=== PATIENT | male | born 1945 | race Caucasian/White ===

== ENCOUNTER → 2018-10-12 | Outpatient (CLI) | payer OTHER, MEDICARE ==
[~2018-10-12] VITALS: Ht 177.8 cm; Wt 73.9 kg
[~2018-10-12] MED LIST: ARICEPT10 M1 PO; ASPIR 8181 MG PO; CYPROHEPTADINE 44 MG PO; FLONASE 0.05%50 MCG NASAL; GLUCOSAMINE CH1 EAC2 PO; MUCUS RELIEF400 MG PO; MULTIVITAMINS1 EAC7 PO; NABUMETONE 750750 M1 PO; NORFLEX100 MG PO; NUVIGIL150 MG PO; PEPCID AC10 MG PO; TRIAMCINOLONE A80 G2 TOP; TURMERIC1 GM PO; TYLENOL EXTRA500 MG PO; VITAMIN D1000 UNI1 PO
[2018-10-12 11:11] VITALS: BP 125/56
--- NOTE | 2018-10-12 11:40 | NUR ---
Pain Clinic Assessment: 1. History of Osteoarthritis: SPINE History of Rheumatoid Arthritis: Not Applicable 2. Height: 5 ft. 10 in. 177.8 cm. Weight: 163.0 lb. oz. 73.936 kg. Patient's BMI: 23.4 3. Vital Signs: BP: 125/56 Pulse: 54 Resp: 14 Temp: 02 Sat: 99 ECG Mon: 4. Pain Intensity: 7-8 WITH WALKING 5. Fall Risk: Dizziness: N Needs help standing or walking: N Fallen in the last 3 months: N Fall risk comments: 6. Patient on Blood Thinner: None 7. History of Hypertension: N 8. Opioid Therapy greater than 6 weeks: Opiate Contract Signed: 9. Risk Assessment Tool Provided: LOW-0 10. Functional Assessment Tool: 11. Recreational Drug Use: Never Drug Type: Tobacco Use: Never Smoker Tobacco Type: Amount or Packs/day: How Many Years: Alcohol Use: Yes Frequency: Weekly Quant: 2
== END | disposition home or self-care (01) ==
LOC: PAIN 06:53
DX: M54.16 Radiculopathy, lumbar region (principal); G89.29 Other chronic pain; Z88.0 Allergy status to penicillin; Z79.82 Long term (current) use of aspirin; Z79.899 Other long term (current) drug therapy

== ENCOUNTER → 2019-01-04 | Outpatient (CLI) | payer OTHER, MEDICARE ==
[~2019-01-04] VITALS: Ht 177.8 cm; Wt 75.8 kg
[2019-01-04 08:32] VITALS: BP 127/66
--- NOTE | 2019-01-04 08:36 | NUR ---
Pain Clinic Assessment: 1. History of Osteoarthritis: SPINE History of Rheumatoid Arthritis: Not Applicable 2. Height: 5 ft. 10 in. 177.8 cm. Weight: 167.0 lb. oz. 75.751 kg. Patient's BMI: 24.0 3. Vital Signs: BP: 127/66 Pulse: 53 Resp: 13 Temp: 02 Sat: 99 ECG Mon: 4. Pain Intensity: 4 5. Fall Risk: Dizziness: N Needs help standing or walking: N Fallen in the last 3 months: N Fall risk comments: 6. Patient on Blood Thinner: None 7. History of Hypertension: N 8. Opioid Therapy greater than 6 weeks: N Opiate Contract Signed: 9. Risk Assessment Tool Provided: LOW-0 10. Functional Assessment Tool: 11. Recreational Drug Use: Never Drug Type: Tobacco Use: Never Smoker Tobacco Type: Amount or Packs/day: How Many Years: Alcohol Use: Yes Frequency: Weekly Quant:
--- NOTE | 2019-01-10 11:13 | HPC ---
[facility] [place] [place] [address] PAIN MANAGEMENT CONSULTATION Name: TYRESEBARBARA Melia Room #: REG [facility]#: [id number] Admission: 01/04/19 Attend Phys: Denys Thakur MD Discharge: Date of : 45 Report #: [id number] THIS REPORT FOR: //name// CC: Denys Avila DATE OF SERVICE: 01/04/2019 CHIEF COMPLAINT: Back pain. HISTORY: The patient is a 73-year-old gentleman who has been seen in the Pain Clinic because of back and leg pain. He has noted onset of this discomfort in 02/2018. He has been active. Generally, he walked about 2-1/2 miles at home. He has had back surgery. He underwent an epidural steroid injection in the past. He noticed an improvement in his pain. After an epidural injection. He has noted a return of his pain and discomfort. Continues to be in the lower back and down in the leg. Standing for 20-30 minutes can cause a recurrence of his pain. Walking is limited because of the pain and discomfort. He describes it as a shooting, aching, and throbbing discomfort. Rates the pain today as 4/10. He would like to proceed with another epidural injection. ALLERGIES: PENICILLIN. CURRENT MEDICATIONS: Guanfacine 400 mg tablets, Tylenol Extra Strength 500 mg b.i.d., Pepcid 10 mg, vitamin D 1000 units, turmeric 1 gram powder b.i.d., multivitamins, glucosamine chondroitin, triamcinolone 0.1% topical, aspirin 81 mg, Flonase 0.05% nasal spray b.i.d., Nuvigil 150 mg, Aricept 10 mg, cyproheptadine 4 mg 3 tablets daily, nabumetone 500 mg b.i.d., and Norflex 100 mg. PAIN CLINIC ASSESSMENT/PQRS: 1. The patient is not being treated for osteoarthritis. Does have some arthritic changes in his spine. He is status post surgery. He is not being treated for rheumatoid arthritis. 2. Height 5 feet 10 inches, weight 167 pounds, BMI is 24.0. 3. Vital Signs: Blood pressure 127/66, pulse 53, respiratory rate 13, room air saturation 99%. 4. Pain intensity, 06/06. 5. Fall history: The patient has not fallen in the last 3 months. 6. Blood thinner. The patient is not on a blood thinning medication. 7. Hypertension. The patient is not being treated for hypertension. 8. Opioids greater than 6 weeks. The patient is not receiving opioids on a regular basis. 9. Functional assessment tool, . 10. Recreational drug use: The patient denies. 11. Tobacco: [place] [address] PAIN MANAGEMENT CONSULTATION Name: BARBARA XIONG Room #: REG [facility]#: [id number] Admission: 01/04/19 Attend Phys: Denys Thakur MD Discharge: Date of : 45 Report #: [id number] 12. Alcohol: The patient occasionally drinks an alcoholic beverage. 13. Risk assessment tool, low for opioid use. PHYSICAL EXAMINATION: GENERAL: The patient is a well-developed, well-nourished white male. Appears his stated age. He is alert and oriented x 3. His affect is appropriate. Speech is fluent. HEENT: Normocephalic, atraumatic. Extraocular eye muscles intact. Sclerae nonicteric. Mucous membranes are moist. NECK: Without adenopathy or JVD. HEART: Regular rate. ABDOMEN: Nontender. Bowel sounds present. EXTREMITIES: Upper extremity muscle strength is judged to be 5/5 for the major muscle groups in the upper extremity. Lower extremity muscle strength generally 5/5. The patient is without significant kyphosis, scoliosis or lordosis. He does have pain that is radiating down in the L4-L5 dermatomal distribution. This involves the left leg and low back area. IMPRESSION: Clinical findings consistent with spinal stenosis with lumbar radiculopathy. RECOMMENDATIONS: We discussed treatment options with the patient. Risks and benefits of an epidural steroid injection were again reviewed. Possible complications of the procedure, which could include but are not limited to infection, worsening pain, no improvement were discussed and the patient elects to proceed. PROCEDURE NOTE: The patient was taken to the procedure area. He was then assisted in getting on the examination table. His back was sterilely prepped with a Betadine solution. This was allowed to dry. Fluoroscopy using anterior, posterior as well as lateral viewing were implemented. A 23-gauge spinal needle was then used to place the injection at the L4-L5 area using the transforaminal approach given the patient has had surgery. The area was anesthetized with a 25-gauge needle and 2.5% bupivacaine. After appropriate placement using a 20-gauge spinal needle at the L4-L5 area with a transforaminal approach. Aspiration was negative. The patient had no complaints of pain or discomfort during the procedure. A total of 80 mg Depo-Medrol, 40 mg triamcinolone and 2 mL of 0.25% bupivacaine were injected. The patient's pain decreased from 4-0 at the time of discharge. A total of 24 seconds fluoroscopy time was used. The patient will follow up in the future as needed. [facility] [address] [place] [address] PAIN MANAGEMENT CONSULTATION Name: BARBARA XIONG Room #: REG Autumn Gallardo.#: [id number] Admission: 01/04/19 Attend Phys: Denys Thakur MD Discharge: Date of : 45 Report #: [id number] We would like to thank you for letting us participate in his care. We hope he continues to improve. <ELECTRONICALLY SIGNED> By: Denys Thakur MD 01/10/19 1113 [id number] Denys Thakur MD /nt
== END | disposition home or self-care (01) ==
LOC: PAIN 06:50
DX: M54.16 Radiculopathy, lumbar region (principal); M48.061 Spinal stenosis, lumbar region without neurogenic claudication; G89.29 Other chronic pain; Z98.890 Other specified postprocedural states; Z88.0 Allergy status to penicillin; Z79.899 Other long term (current) drug therapy

== ENCOUNTER → 2019-03-27 | Outpatient (CLI) | payer OTHER, MEDICARE ==
[~2019-03-27] VITALS: Ht 177.8 cm; Wt 78.3 kg
[2019-03-27 09:22] VITALS: BP 140/75
--- NOTE | 2019-03-27 09:32 | NUR ---
Pain Clinic Assessment: 1. History of Osteoarthritis: SPINE History of Rheumatoid Arthritis: Not Applicable 2. Height: 5 ft. 10 in. 177.8 cm. Weight: 172.6 lb. oz. 78.291 kg. Patient's BMI: 24.8 3. Vital Signs: BP: 140/75 Pulse: 65 Resp: 14 Temp: 02 Sat: 100 ECG Mon: 4. Pain Intensity: 7 5. Fall Risk: Dizziness: N Needs help standing or walking: N Fallen in the last 3 months: N Fall risk comments: 6. Patient on Blood Thinner: None 7. History of Hypertension: N 8. Opioid Therapy greater than 6 weeks: N Opiate Contract Signed: 9. Risk Assessment Tool Provided: LOW-0 10. Functional Assessment Tool: 11. Recreational Drug Use: Never Drug Type: Tobacco Use: Never Smoker Tobacco Type: Amount or Packs/day: How Many Years: Alcohol Use: Yes Frequency: Weekly Quant: 3-4 GLASSES OF WINE
--- NOTE | 2019-04-05 08:40 | HPC ---
[facility] [place] [place] [address] PAIN MANAGEMENT CONSULTATION Name: BARBARA XIONG Room #: REG [facility]#: [id number] Admission: 03/27/19 Attend Phys: Denys Thakur MD Discharge: Date of : 45 Report #: [id number] THIS REPORT FOR: cc: Fahad Avila MD,Fahad Thakur,Denys Guidry MD ~ THIS REPORT FOR: //name// CC: Denys Avila DATE OF SERVICE: 03/27/2019 CHIEF COMPLAINT: Return of pain down in the left leg. HISTORY: The patient is a 73-year-old gentleman who has been seen in the Pain Clinic because of lumbar radiculopathy. He has undergone epidural steroid injections in the past because of pain and discomfort. He returns today indicating that his pain has reoccurred. The last epidural steroid injection was beneficial. He has noticed over the last few months, a return of the pain and discomfort. He has returned today with the hopes of undergoing another injection. As you may recall, he has had back surgery. Rates his pain today as 7/10. Pain is quite problematic when he is standing. It gets worse with activity. Notes that it is 2 while sitting. Notes that the pain can be quite problematic when he is standing in the shower. He sometimes hobbles out of the shower. ALLERGIES: PENICILLIN. CURRENT MEDICATIONS: Guaifenesin 400 mg, Tylenol Extra Strength 500 mg b.i.d., Pepcid 10 mg, vitamin D 1000 units, turmeric 1 gram powder b.i.d., multivitamins, glucosamine chondroitin, triamcinolone 0.1% topical, aspirin 81 mg, Flonase 0.05% nasal spray b.i.d., Nuvigil 150 mg, Aricept 10 mg, cyproheptadine 4 mg 3 tablets daily, nabumetone 500 mg b.i.d., and Norflex 100 mg. PAST MEDICAL HISTORY: Joint disease. PAIN CLINIC ASSESSMENT/PQRS: 1. The patient is not being treated for rheumatoid arthritis. He does have some arthritic changes in his spine and is status post surgery. 2. Height 5 feet 10 inches, weight 172 pounds, and BMI is 24.8. 3. Vital signs: Blood pressure 140/75, pulse 65, respiratory rate 14, room air saturation is 100%. 4. Pain intensity, 7/10. 5. Fall history: The patient has not fallen in the last 3 [place] [address] PAIN MANAGEMENT CONSULTATION Name: BARBARA XIONG Room #: REG [facility]#: [id number] Admission: 03/27/19 Attend Phys: Denys Thakur MD Discharge: Date of : 45 Report #: [id number] 6. Blood thinner. The patient is not on a blood thinning medication. 7. Hypertension. The patient is not being treated for hypertension. 8. Opioids greater than 6 weeks. The patient receives medications from his primary. 9. Risk assessment tool is low. 10. Functional assessment tool, . 11. Recreational drug use: The patient denies. 12. Tobacco: The patient has never smoked. 13. Alcohol: The patient occasionally drinks alcoholic beverages about 3-4 glasses of wine weekly. PHYSICAL EXAMINATION: GENERAL: The patient is a well-developed, well-nourished white male. Appears his stated age. He is alert and oriented x 3. His affect is appropriate. Speech is fluent. HEENT: Normocephalic, atraumatic. Extraocular eye muscles intact. Sclerae nonicteric. Mucous membranes are moist. NECK: Without adenopathy or JVD. HEART: Regular rate. ABDOMEN: Nontender. Bowel sounds present. EXTREMITIES: Upper extremity muscle strength judged to be 5/5 for the major muscle groups in the upper extremity. The patient has some pain and discomfort in the lower extremities and I judged to be 5/5. The patient is without significant scoliosis, kyphosis or lordosis. The patient has pain that is radiating down in the L4-L5 dermatomal distribution involving the left leg and low back area. IMPRESSION: Clinical findings consistent with spinal stenosis and lumbar radiculopathy at the L4-L5 dermatomal distribution. RECOMMENDATIONS: We discussed treatment options with the patient. Risks and benefits of an epidural steroid injection were discussed. They include but are not limited to infection, worsening pain, no improvement in pain, nerve damage, bleeding, spinal headache and the patient elects to proceed. PROCEDURE NOTE: The patient was taken to the procedure area. He was then assisted in getting on the examination table. His back was sterilely prepped with a Betadine solution. Fluoroscopy using anterior, posterior as well as lateral viewing were implemented. At the L4-L5 interspace, a transforaminal epidural steroid was performed, this area was sterilely prepped with a Betadine solution. A 0.25% bupivacaine was used to anesthetize the area. A 22-gauge spinal needle was then advanced into the appropriate place. After appropriate placement was noted using anterior, posterior and lateral viewing were implemented. Aspiration was negative. A total of 80 mg Depo-Medrol, 40 mg triamcinolone was injected. There was no pain or discomfort during the injection. The patient was questioned numerous times as we slowly injected the [facility] [place] [place] [address] PAIN MANAGEMENT CONSULTATION Name: TYRESEBARBARA B Room #: REG [facility] Sami.#: [id number] Admission: 03/27/19 Attend Phys: Denys Thakur MD Discharge: Date of : 45 Report #: [id number] medication. A total of 21 seconds fluoroscopy time was used. The patient tolerated the procedure well. There were no complications. He remained in the Pain Clinic for an appropriate amount of time. His pain decreased to 1 at the time of discharge. He will follow up in the future as needed. We would like to thank you for letting us participate in his care. We hope he continues to improve. <ELECTRONICALLY SIGNED> By: Denys Thakur MD 04/05/19 0840 [id number] Denys Thakur MD /nt
== END | disposition home or self-care (01) ==
LOC: PAIN 06:52
DX: M54.16 Radiculopathy, lumbar region (principal); G89.29 Other chronic pain; M48.061 Spinal stenosis, lumbar region without neurogenic claudication; M19.90 Unspecified osteoarthritis, unspecified site; Z98.890 Other specified postprocedural states; Z88.0 Allergy status to penicillin; Z79.891 Long term (current) use of opiate analgesic; Z79.899 Other long term (current) drug therapy

== ENCOUNTER → 2019-05-08 | Outpatient (CLI) | payer OTHER, MEDICARE ==
[~2019-05-08] VITALS: Ht 175.3 cm; Wt 77.8 kg
--- NOTE | ~2019-05-08 | HPC ---
[facility] [address] [place] [address] PAIN MANAGEMENT CONSULTATION Name: BARBARA XIONG Room #: REG [facility]#: [id number] Admission: 05/08/19 Attend Phys: Denys Thakur MD Discharge: Date of : 45 Report #: [id number] THIS REPORT FOR: cc: Fahad Avila MD,Fahad Thakur,Denys Guidry MD ~ CC: Denys Avila DATE OF SERVICE: 05/08/2019 CHIEF COMPLAINT: Back pain and leg pain. It is improved with injections in the past, but the pain has returned. HISTORY: The patient is a 73-year-old gentleman who has been seen in the Pain Clinic. As you may recall, he has had back surgery. He still has some pain and discomfort involving the left leg. He uses a walker, number of miles a day. He has greatly impeded at this juncture because of continued pain. He has undergone epidural steroid injections on the left side. This has been beneficial. He has noted some recurrence of his pain. He rates it as a 4/10. He notes that prolonged standing in the kitchen is problematic. He is unable to walk to low store. He has some pain in the left hip area as well. He has returned today with the hopes of undergoing an epidural steroid injection. ALLERGIES: PENICILLIN. CURRENT MEDICATIONS: Guaifenesin 400 mg, Tylenol Extra Strength 500 mg b.i.d., Pepcid 10 mg, vitamin D 1000 units, turmeric 1 gram b.i.d., multivitamins, glucosamine chondroitin, triamcinolone topical 0.1%, aspirin 81 mg, Flonase 0.05 b.i.d., Nuvigil 150 mg, Aricept 10 mg, cyproheptadine 4 mg 3 tablets daily, nabumetone 500 mg b.i.d., and Norflex 100 mg. PAIN CLINIC ASSESSMENT/PQRS: 1. The patient is not being treated for rheumatoid arthritis. He does have some osteoarthritic changes in his back and has had surgery. 2. Height 5 feet 9 inches, weight 171 pounds, BMI is 23.3. 3. Vital Signs: Blood pressure 143/73, pulse 68, respiratory rate 18, and room air saturation is 100%. 3. Pain intensity, 10. 5. Fall history: The patient has not fallen. 6. Blood thinner. The patient is not on a blood thinning medication. 7. Hypertension: The patient is being treated for hypertension. 8. Opioids greater than 6 weeks. The patient uses opioid medication from one source. 9. Risk assessment tool, low for opioid use. 10. Functional assessment tool, . [address] [address] PAIN MANAGEMENT CONSULTATION Name: BARBARA XIONG [id number] Admission: 05/08/19 Attend Phys: Denys Thakur MD Discharge: Date of : 45 Report #: [id number] 11. Recreational drug use: The patient denies. 12. Tobacco: The patient denies. 13. Alcohol: The patient drinks wine at night. PHYSICAL EXAMINATION: GENERAL: The patient is a well-developed, well-nourished white male. Appears his stated age. He is alert and oriented x 3. His affect is appropriate. Speech is fluent. HEENT: Normocephalic, atraumatic. Extraocular eye muscles intact. Sclerae nonicteric. Mucous membranes are moist. NECK: Without adenopathy or JVD. He wears glasses. HEART: Regular rate. LUNGS: Clear. ABDOMEN: Nontender. EXTREMITIES: Upper extremity muscle strength judged to be 5/5 for the major muscle groups. The patient has pain and discomfort in lower portion of his back with pain that is radiating down in the L4-L5 dermatomal distribution on the left side. IMPRESSION: Clinical findings consistent with spinal stenosis, lumbar area at L4-L5 area. RECOMMENDATIONS: We discussed treatment options with the patient. Risks and benefits of an injection using the transforaminal approach were discussed. Possible complications of the procedure could include but are not limited to infection, worsening of pain, no improvement in pain, nerve damage, bleeding, and the patient elects to proceed. PROCEDURE NOTE: The patient was taken to the procedure area. He was then assisted in getting on the examination table. His back was sterilely prepped with a Betadine solution at the left lateral spine at L4-L5, 0.25 bupivacaine was used as a skin wheal. A 22-gauge spinal needle was then advanced into the area of the L4-L5 area using a transforaminal approach. There were no complaints of radiculopathy or pain during the procedure. A total of 80 mg Depo-Medrol, 40 mg triamcinolone and 2 mL of 0.25% bupivacaine was injected. The patient tolerated the procedure well. He remained in the Pain Clinic for an appropriate amount of time. He will follow up in the future as needed. He will call us if he has any concerns. We would like to thank you for letting us participate in his care. We hope he continues to improve. By: [id number] Denys Thakur MD /nt
[2019-05-08 09:20] VITALS: BP 143/73
--- NOTE | 2019-05-08 09:25 | NUR ---
Pain Clinic Assessment: 1. History of Osteoarthritis: SPINE History of Rheumatoid Arthritis: Not Applicable 2. Height: 5 ft. 9 in. 175.3 cm. Weight: 171.6 lb. oz. 77.837 kg. Patient's BMI: 25.3 3. Vital Signs: BP: 143/73 Pulse: 68 Resp: 18 Temp: 02 Sat: 100 ECG Mon: 4. Pain Intensity: 4 5. Fall Risk: Dizziness: N Needs help standing or walking: N Fallen in the last 3 months: N Fall risk comments: 6. Patient on Blood Thinner: None 7. History of Hypertension: N 8. Opioid Therapy greater than 6 weeks: N Opiate Contract Signed: 9. Risk Assessment Tool Provided: LOW-0 10. Functional Assessment Tool: 11. Recreational Drug Use: Never Drug Type: Tobacco Use: Never Smoker Tobacco Type: Amount or Packs/day: How Many Years: Alcohol Use: Yes Frequency: Weekly Quant: 5
== END | disposition home or self-care (01) ==
LOC: PAIN 06:38
DX: M48.061 Spinal stenosis, lumbar region without neurogenic claudication (principal); M54.9 Dorsalgia, unspecified; G89.29 Other chronic pain; M79.605 Pain in left leg; I10 Essential (primary) hypertension; Z98.890 Other specified postprocedural states; Z79.899 Other long term (current) drug therapy; Z88.0 Allergy status to penicillin